=== PATIENT | female | born 1985 ===

== ENCOUNTER 2017-09-06 19:46 | Inpatient (IN) | payer OTHER ==
[2017-09-06] MEDS ORDERED: Penicillin G Potassium IV* 5 MILLION.UNITS VIAL ONE (20:23)
[2017-09-06] MEDS ORDERED: Glycerin ADULT SUPP PR PRN (23:08)
[2017-09-06] MEDS ORDERED: Misoprostol TAB* 200 MCG PR ONE (23:08)
[2017-09-06] MEDS ORDERED: Dibucaine 1% 28.35 GM TUBE PR PRN (23:08)
[2017-09-06] MEDS ORDERED: Witch Hazel PAD* JAR TOPICAL PRN (23:08)
[2017-09-07] MEDS ORDERED: Oxytocin in LR* 40 UNITS/2,000 ML BAG IVPB ONE (00:36)
[2017-09-07] MEDS ORDERED: Oxytocin in LR* 20 UNITS/1,000 ML BAG IVPB SCH (01:00)
[2017-09-07] MEDS: Ibuprofen TAB* 600 MG PO PRN ×4 (02:51→23:04)
[2017-09-07] MEDS: Acetaminophen TAB* 325 MG PO PRN (06:35)
[2017-09-07 07:25] LABS: Hematocrit 26 % (35-47); Hemoglobin 8.3 g/dl (12.0-16.0); Mean Corpuscular HGB Conc 31 g/dl (31-36); Mean Corpuscular Hemoglobin 22 pg (27-31); Mean Corpuscular Volume 71 fL (80-97); Mean Platelet Volume 9 um3 (7.4-10.4); Red Blood Count 3.73 10^6/ul (4.0-5.4); Red Cell Distribution Width 15 % (10.5-15); White Blood Count 12.2 10^3/ul (3.5-10.8)
[2017-09-07 07:27] LABS: Add Diff/Slide Review? Slide Review Added; Comments Flag Yes
[2017-09-07 07:29] LABS: Hematocrit 32 % (35-47); Hemoglobin 9.9 g/dl (12.0-16.0); Mean Corpuscular HGB Conc 31 g/dl (31-36); Mean Corpuscular Hemoglobin 22 pg (27-31); Mean Corpuscular Volume 72 fL (80-97); Mean Platelet Volume 10 um3 (7.4-10.4); Red Blood Count 4.45 10^6/ul (4.0-5.4); Red Cell Distribution Width 16 % (10.5-15); White Blood Count 12.3 10^3/ul (3.5-10.8)
[2017-09-07 07:30] LABS: Comments Flag Yes
[2017-09-07] MEDS: Levothyroxine TAB* 100 MCG TAB PO SCH (07:36)
[2017-09-07] MEDS ORDERED: Simethicone TAB* 80 MG TAB.CHEW PO SCH (08:30)
[2017-09-07] MEDS: Ferrous Gluconate TAB* 324 MG TAB PO SCH ×2 (09:43→20:55)
[2017-09-07] MEDS: Docusate CAP* 100 MG PO SCH ×3 (09:43→20:55)
[2017-09-08] MEDS: Acetaminophen TAB* 325 MG PO PRN (00:51)
[2017-09-08] MEDS: Levothyroxine TAB* 100 MCG TAB PO SCH (06:21)
[2017-09-08 08:06] VITALS: BP 115/63
[2017-09-08] MEDS: Ferrous Gluconate TAB* 324 MG TAB PO SCH (08:34)
[2017-09-08] MEDS: Docusate CAP* 100 MG PO SCH ×2 (08:34→14:36)
[2017-09-08] MEDS: Ibuprofen TAB* 600 MG PO PRN ×2 (08:35→14:35)
== END 2017-09-08 19:15 | disposition home or self-care (01) | DRG 775 ==
LOC: MCHOBOUT 19:46 → MCHOB 20:19
PROVIDERS: ADMIT Obstetrics & Gynecology; ATTEND Obstetrics & Gynecology
PROC: 10E0XZZ Delivery of Products of Conception, External Approach (ICD-10-PCS; principal; 2017-09-06)
PROC: 0HQ9XZZ Repair Perineum Skin, External Approach (ICD-10-PCS; 2017-09-06)
PROC: 10907ZC Drainage of Amniotic Fluid, Therapeutic from Products of Conception, Via Natural or Artificial Opening (ICD-10-PCS; 2017-09-06)
DX: O48.0 Post-term pregnancy (principal); D64.9 Anemia, unspecified; O99.824 Streptococcus B carrier state complicating childbirth; O90.81 Anemia of the puerperium; O99.284 Endocrine, nutritional and metabolic diseases complicating childbirth; E03.9 Hypothyroidism, unspecified; O70.0 First degree perineal laceration during delivery; Z3A.41 41 weeks gestation of pregnancy; Z37.0 Single live birth
CPT/HCPCS: 36415; 85025; 86850; 86900; 86901; A9270-GY; J2540

== ENCOUNTER 2020-07-05 13:26 | Inpatient (IN) ==
[~2020-07-05 13:26] MED LIST: Lactated Ringers 1000 ml BAG 1,000 ML IV ONE; Lactated Ringers 1000 ml BAG 1,000 ML IV SCH; Oxytocin in LR 20 UNITS/1,000 ML BAG IVPB SCH; Penicillin G Potassium IV 5,000,000 UNITS in NS 0.9% 100 ml BAG 100 ML IVPB ONE
[2020-07-05 14:31] LABS: Hematocrit 34 % (35-47); Hemoglobin 11.2 g/dL (12.0-16.0); Mean Corpuscular HGB Conc 33 g/dL (31-36); Mean Corpuscular Hemoglobin 26 pg (27-31); Mean Corpuscular Volume 79 fL (80-97); Mean Platelet Volume 9.7 fL (7.4-10.4); Platelet Count 184 10^3/uL (150-450); Red Blood Count 4.37 10^6 /uL (3.70-4.87); Red Cell Distribution Width 15 % (10-15); White Blood Count 8.5 10^3/uL (3.5-10.8)
[2020-07-05 14:38] LABS: ABS Eosinophils 0.1 10^3/ul (0-0.6); ABS Monocytes 0.3 10^3/ul (0-0.8); ABS Neutrophils 7.1 10^3/ul (1.5-7.7); Eosinophil % 0.6 %; Lymphocyte % 12.2 %
[2020-07-05 15:02] LABS: Urine Benzodiazepine Screen None Detected (None Detect); Urine Cannabinoids Screen None Detected (None Detect); Urine Opiates Screen None Detected (None Detect)
[2020-07-05] MEDS ORDERED: Glycerin ADULT 2.4 gm SUPP PR PRN (18:01)
[2020-07-05] MEDS ORDERED: Witch Hazel PAD JAR TOPICAL PRN (18:01)
[2020-07-05] MEDS ORDERED: Dibucaine 1% OINT 28.35 GM TUBE PR PRN (18:01)
[2020-07-05] MEDS ORDERED: Oxytocin in LR 20 UNITS/1,000 ML BAG IVPB SCH (19:00)
[2020-07-06] MEDS: Penicillin G Potassium IV 3,000,000 UNITS in NS 0.9% 100 ml BAG 100 ML IVPB SCH (06:14)
[2020-07-06 07:06] LABS: ABS Eosinophils 0.1 10^3/ul (0-0.6); ABS Lymphocytes 1.9 10^3/ul (1.0-4.8); ABS Monocytes 0.5 10^3/ul (0-0.8); ABS Neutrophils 8.4 10^3/ul (1.5-7.7); Eosinophil % 0.9 %; Hematocrit 31 % (35-47); Hemoglobin 10.2 g/dL (12.0-16.0); Lymphocyte % 17.7 %; Mean Corpuscular HGB Conc 34 g/dL (31-36); Mean Corpuscular Hemoglobin 26 pg (27-31); Mean Corpuscular Volume 78 fL (80-97); Mean Platelet Volume 10.5 fL (7.4-10.4); Nucleated Red Blood Cells % 0.1; Platelet Count 160 10^3/uL (150-450); Red Cell Distribution Width 15 % (10-15)
[2020-07-07] MEDS: Penicillin G Potassium IV 3,000,000 UNITS in NS 0.9% 100 ml BAG 100 ML IVPB SCH (07:25)
[2020-07-07 08:06] VITALS: BP 100/56
== END 2020-07-07 18:10 | disposition home or self-care (01) | DRG 807 ==
LOC: MCHOBOUT 13:26 → MCHOB 13:33
PROVIDERS: ADMIT Obstetrics & Gynecology; ATTEND Obstetrics & Gynecology